=== PATIENT | female | born 1965 | race Caucasian/White ===

== ENCOUNTER → 2017-10-09 | Day surgery (SDC) | payer OTHER ==
--- NOTE | 2017-10-10 14:33 | OP ---
DATE OF OPERATION: 10/09/2017 PREOPERATIVE DIAGNOSIS: Right breast mass, 10 o'clock, 10 cm from the nipple. POSTOPERATIVE DIAGNOSIS: Right breast mass, 10 o'clock, 10 cm from the nipple. PROCEDURE: Right ultrasound-guided core biopsy with clip placement. ANESTHESIA: Local. ATTENDING SURGEON: Ace Barone MD ESTIMATED BLOOD LOSS: Minimal. COMPLICATIONS: None. PROCEDURE: The patient was made aware of the risks and benefits of the procedure. The patient was placed in supine position, and under sterile conditions with 1% lidocaine for local anesthesia, a small terri was made in the skin. Using a 10-gauge, suction-biopsy device, via inferior-lateral approach, under ultrasound guidance, multiple cores were obtained and submitted to Pathology. Likewise, under ultrasound guidance, a bow-tie clip was placed into the biopsy region. Well tolerated by patient. A Steri-Strip and a sterile bandage were applied. We will contact her with the results. ACE BARONE M.D. [id number]
--- NOTE | 2017-10-13 15:46 | PATH ---
Surgical Pathology Report Patient Name: ALMA CHAPPELL Med. Rec. #: [id number] /Age/Gender: 1965 (Age: 52) / F Account: [id number] Location: [facility] Taken: 10/09/2017 Received: 10/09/2017 Reported: 10/13/2017 Physicians: Ace Barone M.D. Specimen(s) Received RIGHT BREAST 10:00 10 CM FN CORE BIOPSY Clinical History Nonpalpable lesion Ultrasound findings: Highly suspicious/malignant Final Diagnosis BREAST, RIGHT, 10:00, 10 CM FN, CORE BIOPSY: INVASIVE DUCTAL CARCINOMA, WELL DIFFERENTIATED (WITH FEW ASSOCIATED CALCIFICATIONS), MEASURING 1.1 CM IN GREATEST DIMENSION IN THIS MATERIAL. DUCTAL CARCINOMA IN SITU (DCIS), CRIBRIFORM AND PAPILLARY TYPE, LOW NUCLEAR GRADE. Results of ER and ND studies performed on block at [facility] are as follows: ER (clone [id number] mouse monoclonal antibody by [employer]): > 95 % nuclear staining with strong intensity (Positive). ND (clone16 mouse monoclonal antibody by Leica): > 95 % nuclear staining with strong intensity (Positive). Results of Her2 IHC & Ki67 studies will be reported separately in an addendum. Positive and negative controls (internal if applicable) show appropriate results. Formalin fixation and cold ischemic times are within current ASCO/CAP recommendations for ER, ND and Her2 testing. Electronically Signed Nuvia Sood M.D. Addendum Reported: 10/14/2017 Addendum Diagnosis Results of Her2 (IHC) & Ki-67 studies performed at [place], [place] ([id number]) are as follows: Her2 IHC (EP3 from [employer], formerly known as [id number], using Valentin Polymer Refine detection kit):0 (Negative). Ki-67: ~5% Low proliferative index). Positive and negative controls (internal if applicable) show appropriate results. Nuvia Sood M.D. Gross Description Received in formalin labeled "right breast 10:00, 10cmfn," is a 2.2 x 1.5 x 0.3 cm aggregate of multiple fischer-yellow, irregular to cylindrical portions of fibroadipose tissue. The formalin is filtered and the specimen is entirely submitted in one cassette. Time to formalin fixation: < 1 minute Total formalin fixation time: Approximately 8 hours. 10/09/201710/09/2017
== END | disposition home or self-care (01) ==
LOC: FRADUS-SUR 13:32
PROVIDERS: ATTEND Surgery Surgical Oncology
PROC: 0HBT3ZX Excision of Right Breast, Percutaneous Approach, Diagnostic (ICD-10-PCS; principal; 2017-10-09)
DX: C50.411 Malignant neoplasm of upper-outer quadrant of right female breast (principal); D05.11 Intraductal carcinoma in situ of right breast
CPT/HCPCS: 19083; 87899; 88305-TC; 88342-TC; A4648; G0206-TC

== ENCOUNTER 2017-12-01 07:39 | Day surgery (SDC) | payer OTHER ==
[2017-11-19 12:20] VITALS: BMI 30.7
--- NOTE | 2017-11-23 13:34 | HP ---
Admitting History and Physical - Primary Care Physician PCP: Mg Najera - Admission Chief Complaint: right breast cancer History of Present Illness: 52 yo female noted to have a new suspicious asymmetry in the right upper outer breast on mammo and US underwent an US guided core bx (10/09/2017) which was positive for well-dif invasive ductal ca ER/MD positive, HER-2 negative. MRI done was c/w localized cancer approx 1.9 cm and 10 cm FN without evidence of multifocal or contralateral dz. Patient is now presenting for right breast WE with NL, snbx poss andx and lymphoscintogram. History Source: Patient Limitations to Obtaining History: No Limitations - Past Medical History ...LMP Comment: 07/2017 ...: No Psych: Yes: Anxiety, Depression - Advance Directives Advance Directives: Yes: Health Care Proxy - Smoking History Smoking history: Never smoked Have you smoked in the past 12 months: No If you are a former smoker, when did you quit?: 1996 - Alcohol/Substance Use Hx Alcohol Use: Yes (social) Home Medications - Allergies Allergies/Adverse Reactions: Allergies Allergy/AdvReac Type Severity Reaction Status Date / Time No Known Allergies Allergy Verified 11/19/17 12:20 - Home Medications Home Medications: Ambulatory Orders Cholecalciferol (Vitamin D3) [Vitamin D] 2,000 unit PO DAILY 11/19/17 Multivitamins [Multivit ([facility] Formulary)] 1 tab PO DAILY 11/19/17 Oxycodone HCl 5 mg PO PRN PRN 11/19/17 Family Disease History - Family Disease History Family Disease History: CA: Father (brain ca 74) Review of Systems - Review of Systems Constitutional: reports: No Symptoms Cardiovascular: reports: No Symptoms Physical Examination Constitutional: Yes: Well Nourished Breast(s): Yes: Other (ptotic C-cup without skin changes or nipple discharge noted. No suspicious masses or adenopathy noted bilaterally.) Problem List - Problems (1) Breast cancer, right breast Code(s): C50.911 - MALIGNANT NEOPLASM OF UNSP SITE OF RIGHT FEMALE BREAST Qualifiers: Breast location: upper outer quadrant of breast Estrogen receptor status: positive Patient sex: female Qualified Code(s): C50.411 - Malignant neoplasm of upper-outer quadrant of right female breast; Z17.0 - Estrogen receptor positive status [ER+]; Z17.0 - Estrogen receptor positive status [ER+] Assessment/Plan plan right breast WE with NL, snbx, poss andx lymphoscintogram and intraop radiation.
[2017-12-01] MEDS ORDERED: BUPIVACAINE HCL/PF 2.5 MG/ML - 30 ML VIAL IJ ONE (14:34)
[2017-12-01] MEDS ORDERED: LIDOCAINE HCL 1%, 10 MG/ML (20ML VIAL) ONE (14:34)
[2017-12-01] MEDS ORDERED: ISOSULFAN BLUE 10 MG/ML VIAL SQ ONE (15:04)
[2017-12-01] MEDS ORDERED: BUPIVACAINE HCL/PF 0.25% (2.5MG/ML) 10 ML VIAL IJ ONE (17:31)
[2017-12-01] MEDS ORDERED: GUM MASTIC/STORAX/MSAL/ALCOHOL 1 DRP DROPSBTL MC ONE (17:55)
[2017-12-01] MEDS ORDERED: ONDANSETRON 4 MG/2 ML VIAL IVPUSH PRN ×2 (18:23→18:26)
[2017-12-01] MEDS ORDERED: KETOROLAC TROMETHAMINE 30 MG/1 ML VIAL IVPUSH ONE (18:25)
[2017-12-01] MEDS ORDERED: PROMETHAZINE HCL 25 MG/1 ML VIAL IVPB PRN (18:26)
[2017-12-01] MEDS ORDERED: DEXTROSE 5%-0.45% SALINE 1,000 ML IV SCH (18:30)
[2017-12-01] MEDS ORDERED: LACTATED RINGERS SOLUTION 1,000 ML IV SCH (18:30)
[2017-12-01] MEDS ORDERED: KETOROLAC TROMETHAMINE 30 MG/1 ML VIAL ONE (19:06)
[2017-12-01] MEDS ORDERED: oxyCODONE HCL 5 MG TABLET PO PRN ×2 (19:08)
[2017-12-01 20:42] VITALS: TEMP 98.1
[2017-12-01 21:01] VITALS: BP 128/64; PULSE 82
--- NOTE | 2017-12-02 06:40 | OP ---
DATE OF OPERATION: 12/01/2017 PREOPERATIVE DIAGNOSIS: Right breast cancer, upper outer quadrant. POSTOPERATIVE DIAGNOSIS: Right breast cancer, upper outer quadrant. PROCEDURE: Right breast partial mastectomy with mammographic needle localization with right axillary sentinel lymph node biopsy and intraoperative radiation therapy. PRIMARY SURGEON: Rowan Najera MD GARDE MANAGER: AMY Gandara ANESTHESIA: General endotracheal anesthesia. COMPLICATIONS: There were no complications. INDICATIONS: Briefly, the patient is a 52-year-old perimenopausal white female of Ashkenazi Quaker descent. There is a family history with her maternal great uncle with breast cancer. Her father had brain cancer at age 75 and maternal grandfather with lung cancer. The patient was found to have some asymmetry in the upper outer aspect of the right breast on screening mammography in September of 2017 and had a 1.2 x 1.3 x 1.1 cm density seen on ultrasound 10 cm from the nipple. Ultrasound-guided core biopsy performed October 09, 2017, showed a well-differentiated invasive duct cancer which was ER/VA positive and HER2/[place] negative. MRI showed a localized cancer. The patient was advised on undergoing a right breast partial mastectomy with sentinel lymph node biopsy and was given the option of entering the TARGIT- Registry Trial for intraoperative radiation. She was seen by the radiation oncologist preoperatively and was felt to be a good candidate, and the patient decided to go forward with intraoperative radiation. DESCRIPTION OF PROCEDURE: She was brought in for the procedure on December 01, 2017. She first underwent a needle localization and lymphoscintigraphy at [facility] and was brought to the [facility]. In the holding area, site verification was made and informed consent was obtained. . She was brought into the operating room and laid on the OR table in the supine position. Venodynes were placed on the lower extremities prior to induction. She first underwent general laryngeal mask airway anesthesia. The right breast was sterilely prepped and draped in the usual fashion with the wire prepped in the field, and 3 mL of lymphazurin blue were injected intradermally and peritumorally around the needle localization site. Massage was instituted. At this point, the surgery was started with the sentinel lymph node biopsy. An incision was made just below the hair-bearing area of the right axilla. The patient was slightly agitated at the beginning of the procedure, and laryngeal mask airway anesthesia was changed to general endotracheal anesthesia. The right axilla was then explored using the navigator probe to direct the dissection. No really blue lymphatics were seen. However, a hot node was easily found in the level 1 region of the right axilla with a 10-second gamma count of 1,509. There was also a non-sentinel lymph node removed, which was not hot or blue, and sent separately as non-sentinel lymph node. Both nodes were sent in formalin for permanent section. Background count after removal of these 2 nodes was 53. Hemostasis was achieved. At this point, the wide excision was undertaken around the needle localization site. A small ellipse of skin was removed with the wide excision, and dissection was undertaken all the way down to the pectoralis major muscle. The wire was completely removed with the breast tissue around it. The specimen was oriented with the long-lateral short-superior suture. Specimen radiograph showed removal of the clip in question. At this point, separate margins were taken on the superior, inferior, medial, lateral, and deep aspects with the suture marking the biopsy cavity side. These were all sent to Pathology as margins. Intraoperative radiation was then accomplished using a 4-cm Intrabeam device. A pursestring suture was placed to bring the breast tissue around the device, and Intrabeam radiation was accomplished after about [address] Alex Rodriguez was the radiation oncologist during the procedure. After intraoperative radiation, the device was removed. A 3 x 4 cm tissue transfer closure was then accomplished by undermining the breast tissue and reapproximated using 2-0 plain suture. The skin was closed using interrupted 3-0 deep dermal Vicryl suture and a running 4-0 subcuticular Biosyn suture. The axillary wound was closed in a similar fashion. Mastisol and Steri-Strips were applied over the wounds, and compressive dressing placed over this. The patient was extubated at the end of the case. Patient was placed in a surgical bra postoperatively. She will be recovered in the post-anesthesia care unit and will be discharged home the same day once her discharge criteria are met. All sponge and needle counts were correct at the end of the case, and estimated blood loss was about 30 mL. She was hemodynamically stable throughout. ROWAN NAJERA M.D. [id number]
--- NOTE | 2017-12-03 07:29 | OP ---
DATE OF OPERATION: 12/01/2017 PROCEDURE PERFORMED: Post-lumpectomy intraoperative radiation therapy for right breast cancer. PREOPERATIVE DIAGNOSIS: Right breast cancer. POSTOPERATIVE DIAGNOSIS: Right breast cancer. ATTENDING SURGEON: Mg Najera M.D. TELECOMMUNICATIONS ADMINISTRATOR/RADIATION ONCOLOGIST: Alex Rodriguez M.D. ANESTHESIA: General endotracheal. COMPLICATIONS: None. INDICATIONS: The patient is a 52-year-old woman with a clinical stage IA, ER/GA positive, HER2 negative, invasive ductal carcinoma of the right breast, who has elected breast conservation with lumpectomy and IORT on the [facility] study. DESCRIPTION OF PROCEDURE: Dr. Mg Najera performed right lumpectomy and sentinel lymph node biopsy, which he has dictated. After excision of additional margins, the lumpectomy cavity was prepared by suturing the deep breast tissue to close the cavity and to protect the chest wall. The lumpectomy cavity was sized with a 4.0 cm diameter spherical applicator that was placed within the lumpectomy cavity. The surrounding breast tissues were cinched around the applicator with a Vicryl purse-string suture. I performed a clinical and ultrasound simulation to ensure that the applicator was located within the operative bed, with close apposition of the surrounding breast tissue to the surface of the applicator. I ensured that there was adequate distance between the applicator and chest wall, as well as skin, with a minimum separation of 1.6 cm at the 3 o'clock aspect of the applicator by ultrasound measurements. Saline-soaked gauze was placed between the skin and breast tissue to maximize skin separation. Shielding material was placed over the breast to reduce scatter radiation. The patient received a total dose of 20 Gy prescribed to 0 mm from the applicator surface, with 50 kV x-rays using the Intrabeam system. Prior to the treatment, the system was double checked, with appropriate physics quality review trainer measured. The total time required for the treatment was 26 minutes 58 seconds at a dose rate of 0.74 Gy/ min. When the treatment was completed, a survey of the patient and room confirmed that the Intrabeam source was off. There were no complications or unexpected interruptions. Dr. Najera removed the radiation applicator from the patient and completed the surgery. The patient will be discharged to the recovery room following the surgery. LAEX RODRIGUEZ M.D. /[id number] cc: Jayce DALAL
--- NOTE | 2017-12-07 15:47 | PATH ---
Surgical Pathology Report Patient Name: ALMA CHAPPELL [facility]. Rec. #: [id number] /Age/Gender: 1965 (Age: 52) / F Account: [id number] [facility] Taken: 12/01/2017 Received: 12/01/2017 Reported: 12/07/2017 Physicians: Mg Najera M.D. Specimen(s) Received A: RIGHT AXILLARY SENTINEL NODE #1 B: RIGHT AXILLARY NON-SENTINEL NODE C: RIGHT BREAST WIDE EXCISION D: RIGHT BREAST SUPERIOR MARGIN E: RIGHT BREAST MEDIAL MARGIN F: RIGHT BREAST LATERAL MARGIN G: RIGHT BREAST INFERIOR MARGIN H: RIGHT BREAST DEEP MARGIN Clinical History Right upper outer quadrant invasive cancer Final Diagnosis A. lymph node, right axillary sentinel #1, excision: One lymph node, negative for metastatic carcinoma (0/1). B. lymph node, right axillary non-sentinel, excision: One lymph node, negative for metastatic carcinoma (0/1). C. breast, right, wide excision: Invasive ductal carcinoma, well differentiated (tubule score: 1/3; nuclear grade: 2/3; mitotic score: 1/3; total Rodrigo score: 4/9), measuring 1.1 cm in greatest dimension, microscopically. Ductal carcinoma in situ (DCIS), cribriform, micropapillary and flat type, low to intermediate nuclear grade, present admixed with invasive carcinoma as a major component. Surgical margins are uninvolved by carcinoma; invasive and in situ carcinoma is at 2 mm from the closest (medial) margin. see specimens D-H for final margins. Skin is present and is uninvolved by carcinoma. No lymphovascular invasion is identified. Prior biopsy changes are present. Pathologic stage (ptnm): pt1c pN0. see also invasive carcinoma case summary below. D. breast, right, superior margin, excision: Benign predominantly fatty breast tissue. E. breast, right, medial margin, excision: Benign breast tissue showing fibrocystic changes and sclerosing adenosis. F. breast, right, lateral margin, excision: One benign intramammary lymph node (0/1). Negative for malignancy. G. breast, right, anterior margin, excision: Benign predominantly fatty breast tissue. H. breast, right, deep margin, excision: Benign predominantly fatty breast tissue. The Comments Breast Invasive Carcinoma: Surgical Pathology Case Summary (Based on AJCC TNM 8 th edition) Procedure _X_ Excision (less than total mastectomy) Specimen Laterality _X_ Right Tumor Size _X_ Greatest dimension of largest invasive focus >1 mm : 11 mm Histologic Type _X_ Invasive carcinoma of no special type (ductal, not otherwise specified) Histologic Grade ([place] Histologic Score) Glandular (Acinar)/Tubular Differentiation _X_ Score 1 (>75% of tumor area forming glandular/tubular structures) Nuclear Pleomorphism _X_ Score 2 Mitotic Rate _X_ Score 1 Overall Grade _X_ Grade 1 (scores of 3, 4, or 5) Tumor Focality _X_ Single focus of invasive carcinoma Ductal Carcinoma In Situ (DCIS) _X_ DCIS is present in specimen _X_ Positive for extensive intraductal component EIC Margins Invasive Carcinoma Margins _X_ Uninvolved by invasive carcinoma Distance from closest margin (millimeters): 2 mm from medial margin in wide excision C. Final medial margin E is negative for carcinoma. DCIS Margins _X_ Uninvolved by DCIS Distance from closest margin (millimeters): 2 mm from medial margin in wide excision C. Final medial margin E is negative for carcinoma. Regional Lymph Nodes Number of Lymph Nodes with Macrometastases (>2 mm): 0 Number of Lymph Nodes with Micrometastases (>0.2 mm to 2 mm and/or >200 cells): 0 Number of Lymph Nodes with Isolated Tumor Cells (=0.2 mm and =200 cells): 0 Extranodal Extension: _X_ Not identified Number of Lymph Nodes Examined: Number of [place] Nodes Examined : 1 Treatment Effect _X_ No known presurgical therapy Lymphovascular Invasion _X_ Not identified Pathologic Stage Classification (pTNM, AJCC 8th Edition) Primary Tumor (Invasive Carcinoma) (pT) _X_ pT1c: Tumor >10 mm but =20 mm in greatest dimension Regional Lymph Nodes (pN) Category (pN) _X_ pN0 (sn): No regional lymph node metastasis identified or ITCs only Biomarker Studies Results of ER and NV studies performed on prior biopsy ([id number]) at [facility] are as follows: ER (clone [id number] mouse monoclonal antibody by [employer]): > 95 % nuclear staining with strong intensity (Positive). NV (clone16 mouse monoclonal antibody by [employer]): > 95 % nuclear staining with strong intensity (Positive). Results of Her2 (IHC) & Ki-67 studies performed on prior biopsy ( [id number]) at [place], [place] ( [id number]) are as follows: Her2 IHC (EP3 from [employer], formerly known as [id number], using Valentin Polymer Refine detection kit): 0 (Negative). Ki67: ~5% (low proliferative index). Electronically Signed Nuvia Sood M.D. Gross Description A. Received in formalin labeled "right axillary sentinel node #1," is a 0.9 x 0.6 x 0.4 cm fischer lymph node. The specimen is bisected and entirely submitted in one cassette. B. Received in formalin labeled "non-sentinel node right axillary," is a 1.0 x 0.7 x 0.4 cm fischer lymph node. The specimen is bisected and entirely submitted in one cassette. C. Received in formalin, labeled "right breast wide excision," is a 4.7 x 4.3 x 4.2 cm. fischer-yellow, irregular, portion of fibroadipose tissue with a needle localization wire present. There is a short suture marking the superior aspect and a long suture marking the lateral aspect, per the surgeon. The anterior surface displays a 3.1 x 0.4 cm fischer, elliptical, unremarkable portion of skin. The specimen is inked as follows: Superior blue; inferior green; lateral red; medial yellow; deep black. The specimen is serially sectioned from superior to inferior. Sectioning reveals a 1.4 x 1.1 x 1.0 cm fischer, firm mass at 0.3 cm from the deep margin and 0.4 cm from the medial margin. Snow Maker sections are submitted in 6 cassettes as follows: 1-2-one full-face section of mass each (each with deep and medial margins); 3-lateral margin; 4-skin; 5-superior margin; 6-inferior margin. Time to formalin fixation: 34 minutes Total formalin fixation time: Approximately 25 hours. D. Received in formalin labeled "right breast superior margin," is a 3.2 x 1.6 x 0.7 cm irregular portion of fibroadipose tissue with a suture marking the biopsy cavity side, per the surgeon. The new margin is inked in blue and the specimen is serially sectioned. The specimen is entirely submitted in 3 cassettes. E. Received in formalin labeled "right breast medial margin," is a 2.3 x 1.3 x 0.8 cm portion of fibroadipose tissue with a suture marking the biopsy cavity side, per the surgeon. The new margin is inked blue and the specimen is serially sectioned. The specimen is entirely submitted in 3 cassettes. F. Received in formalin labeled "right breast lateral margin," is a 2.6 x 2.2 x 1.3 cm irregular portion of fibroadipose tissue with a suture marking the biopsy cavity side, per the surgeon. The new margin is inked blue and the specimen is serially sectioned. Sectioning reveals a possible lymph node. The specimen is entirely and sequentially submitted in 4 cassettes. G. Received in formalin labeled "right breast inferior margin," is a 2.8 x 2.1 x 0.9 cm irregular portion of fibroadipose tissue with a suture marking the biopsy cavity side, per the surgeon. The new margin is inked blue and the specimen is serially sectioned. The specimen is entirely submitted in 3 cassettes. H. Received in formalin labeled "right breast deep margin," is a 3.0 x 2.2 x 0.7 cm irregular portion of fibroadipose tissue with a suture marking the biopsy cavity side, per the surgeon. The new margin is inked blue and the specimen is serially sectioned. The specimen is entirely submitted in 3 cassettes. 12/02/2017 saudi12/02/2017
== END 2017-12-01 20:25 | disposition home or self-care (01) ==
LOC: FASU 07:39
PROVIDERS: ATTEND Surgery Surgical Oncology
PROC: 0HBT0ZZ Excision of Right Breast, Open Approach (ICD-10-PCS; principal; 2017-12-01 15:40)
PROC: DMY17ZZ Contact Radiation of Right Breast (ICD-10-PCS; 2017-12-01 15:40)
DX: C50.411 Malignant neoplasm of upper-outer quadrant of right female breast (principal); Z17.0 Estrogen receptor positive status [ER+]
CPT/HCPCS: 0182T; 19281; 76641-TC-50; 77290; 77300; 77316; 77332; 77370-TC; 77424; 78195-TC; 84703; 88307-TC; 94760; A9541; C9726